=== PATIENT | male | born 1935 | race Two or more races ===

== ENCOUNTER 2022-11-27 23:30 | Inpatient (IN) | payer OTHER ==
[~2022-11-27] VITALS: Ht 175.3 cm; Wt 68.0 kg
[2022-11-28] VITALS (15 sets, daily range): BP systolic 108–177; BP diastolic 43–92
[2022-11-28 01:32] LABS: Basophils # (auto) 0 10 ^3/uL (0-0.2); Eosinophils # (auto) 0.2 10 ^3/uL (0-0.8); Eosinophils % (auto) 4.2 % (0.0-7.0); Mean Corpuscular Hgb Conc. 34.2 g/dL (32.0-36.0); Monocytes # (auto) 0.5 10 ^3/uL (0-1.3); Neutrophils # (auto) 2.5 10 ^3/uL (1.6-8.6)
[2022-11-28 01:34] LABS: Basophils % (auto) 0.8 % (0.0-2.0); Hematocrit 23.2 % (41.0-53.0); Hemoglobin 7.9 g/dL (13.5-17.5); Lymphocytes # (auto) 1.5 10 ^3/uL (0.4-5.4); Lymphocytes % (auto) 31.9 % (10.0-50.0); Mean Corpuscular Volume 90.5 fL (80.0-100.0); Monocytes % (auto) 11.1 % (0.0-12.0); Red Blood Cells 2.57 10^6/uL (4.5-5.90); Red Cell Distribution Width 17.3 % (11.8-14.3); White Blood Cell 4.8 10^3/uL (4.4-10.8)
[2022-11-28 01:40] LABS: Albumin 2.5 g/dL (3.4-5.0); BUN/Creatinine Ratio 12.3 (10.0-20.0); Calcium 7.7 mg/dL (8.5-10.1); Potassium 4.1 mmol/L (3.5-5.1)
[2022-11-28 01:43] LABS: Bilirubin, Total 0.2 mg/dL (0.2-1.0); Total Protein 5.6 g/dL (6.4-8.2)
[2022-11-28 01:48] LABS: INR 1.01 (0.9-1.15); Partial Thromboplastin Time 26.2 sec (24.6-33.4)
[2022-11-28 09:36] LABS: Urine Bacteria NONE SEEN /hpf (None Seen); Urine Blood Negative /uL (Negative); Urine Specific Gravity 1.005 (1.001-1.035); Urine WBC 2 /hpf (0 - 3)
[2022-11-28] MEDS ORDERED: MORPHINE SULFATE INJ 2 MG/ml SYRG IV PRN (11:45)
[2022-11-28] MEDS ORDERED: NITROGLYCERIN 0.4 MG SL TAB SL PRN (11:45)
[2022-11-28 12:18] LABS: Cholesterol 156 mg/dL (< 200); HDL Cholesterol 43 mg/dL (40-59); LDL Cholesterol 103 mg/dL (< 100); Triglycerides 102 mg/dL (< 150)
[2022-11-28] MEDS ORDERED: LIDOCAINE 2%HCL (LOCAL ANESTH.) INJ 10ml MDV ONE (12:22)
[2022-11-28] MEDS ORDERED: LIDOCAINE 2%HCL (LOCAL ANESTH.) INJ 20ML MDV ONE (12:23)
[2022-11-28] MEDS ORDERED: MIDAZOLAM HCL 2MG/2ML 2ml VIAL (1mg/ml) ONE (12:25)
[2022-11-28] MEDS ORDERED: HEPARIN SODIUM (PORCINE) 5000 UNITS/ML 1ML VIAL ONE (12:25)
[2022-11-28] MEDS ORDERED: fentaNYL CITRATE 100 MCG/2 ML VL ONE (12:25)
[2022-11-28] MEDS ORDERED: hydrALAZINE HCL 20 MG/ML VL IV PRN (12:30)
[2022-11-28] MEDS ORDERED: DEXTROSE (50%) 50ML SYRG IV PRN (12:30)
[2022-11-28] MEDS ORDERED: ceFAZolin 1GM/50ML 50 ML IV ONE (12:41)
[2022-11-28] MEDS ORDERED: PANTOPRAZOLE 40 MG/10 ML VIAL INJ IV ONE (12:45)
[2022-11-28 12:47] LABS: Alcohol, Urine < 3.0 mg/dL (0-10); Amphetamine Screen, Urine NEGATIVE (NEGATIVE); Barbiturate Scree,Urine NEGATIVE (NEGATIVE); Benzodiazephine Screen, Urine NEGATIVE (NEGATIVE); Cannabinoid Screen, Urine NEGATIVE (NEGATIVE); Cocaine Screen, Urine NEGATIVE (NEGATIVE); Opiate Scree,Urine NEGATIVE (NEGATIVE); Phencyclidine Screen, Urine NEGATIVE (NEGATIVE)
[2022-11-28 14:03] LABS: % Iron Saturation 25.3 % (20-55)
[2022-11-28 14:09] LABS: Ferritin 197.2 ng/mL (10-322)
[2022-11-28 17:20] LABS: Folate (Folic Acid) 14.2 ng/mL (5.38-24)
[2022-11-28 17:55] LABS: INR 1.05 (0.9-1.15)
[2022-11-28] MEDS: InsuLIN REG 1unit/0.01ml Soln (100units/ml) SC SCH ×2 (19:00→21:48)
[2022-11-28] MEDS: ACCU-CHEK COMFORT CURVE STRIP VI SCH ×2 (19:00→21:46)
[2022-11-28] MEDS: HEPARIN SODIUM (PORCINE) 5000 UNITS/ML 1ML VIAL SC SCH (21:45)
[2022-11-29 05:21] VITALS: BP 128/62
[2022-11-29] MEDS: ACCU-CHEK COMFORT CURVE STRIP VI SCH ×2 (06:24→12:00)
[2022-11-29] MEDS: InsuLIN REG 1unit/0.01ml Soln (100units/ml) SC SCH ×2 (06:25→12:53)
[2022-11-29 06:29] LABS: Basophils # (auto) 0 10 ^3/uL (0-0.2); Eosinophils # (auto) 0.2 10 ^3/uL (0-0.8); Mean Corpuscular Hemoglobin 31.3 pg (28.0-32.0); Monocytes # (auto) 0.4 10 ^3/uL (0-1.3); Neutrophils # (auto) 2.6 10 ^3/uL (1.6-8.6); Neutrophils % (auto) 60.9 % (37.0-80.0); White Blood Cell 4.3 10^3/uL (4.4-10.8)
[2022-11-29 06:32] LABS: Basophils % (auto) 1.1 % (0.0-2.0); Eosinophils % (auto) 4.5 % (0.0-7.0); Hematocrit 22.3 % (41.0-53.0); Hemoglobin 7.8 g/dL (13.5-17.5); Lymphocytes # (auto) 1.1 10 ^3/uL (0.4-5.4); Lymphocytes % (auto) 24.7 % (10.0-50.0); Mean Corpuscular Hgb Conc. 34.9 g/dL (32.0-36.0); Mean Corpuscular Volume 89.8 fL (80.0-100.0); Monocytes % (auto) 8.8 % (0.0-12.0); Nucleated Red Blood Cells % 0.1 %; Red Blood Cells 2.48 10^6/uL (4.5-5.90); Red Cell Distribution Width 17.2 % (11.8-14.3)
[2022-11-29 06:46] LABS: % Iron Saturation 23.5 % (20-55)
[2022-11-29 06:47] LABS: Potassium 4.3 mmol/L (3.5-5.1)
[2022-11-29 06:56] LABS: Albumin 2.4 g/dL (3.4-5.0); BUN/Creatinine Ratio 12.7 (10.0-20.0); Bilirubin, Total 0.3 mg/dL (0.2-1.0); Calcium 7.6 mg/dL (8.5-10.1); Total Protein 5.1 g/dL (6.4-8.2)
[2022-11-29] MEDS ORDERED: SODIUM CHL 0.9% 1000 ML BAG XX ONE (07:00)
[2022-11-29 09:00] VITALS: BP 114/50
[2022-11-29] MEDS: HEPARIN SODIUM (PORCINE) 5000 UNITS/ML 1ML VIAL SC SCH (09:36)
[2022-11-29] MEDS ORDERED: NICOTINE 7MG/24HR TOPICAL PATCH TD SCH (10:00)
[2022-11-29] MEDS ORDERED: PANTOPRAZOLE 40 MG/10 ML VIAL INJ IV SCH (10:00)
[2022-11-29 13:00] VITALS: BP 109/60
[2022-11-29 13:29] VITALS: BP 114/50
[2022-11-29] MEDS ORDERED: EPOETIN ALFA-EPBX 10,000 UNIT/1ML VIAL SC ONE (21:00)
== END 2022-11-29 14:30 | disposition home or self-care (01) | DRG 673 ==
LOC: EDBD 23:30 → ER 23:30 → TELE 11-28 11:34 → EDBD 11-28 11:34 → TELE-WESTW 11-28 18:52
PROVIDERS: ADMIT Registered Nurse; ATTEND Internal Medicine
PROC: 0JH63XZ Insertion of Tunneled Vascular Access Device into Chest Subcutaneous Tissue and Fascia, Percutaneous Approach (ICD-10-PCS; principal; 2022-11-28)
PROC: 02HV33Z Insertion of Infusion Device into Superior Vena Cava, Percutaneous Approach (ICD-10-PCS; 2022-11-28)
PROC: B5181ZA Fluoroscopy of Superior Vena Cava using Low Osmolar Contrast, Guidance (ICD-10-PCS; 2022-11-28)
PROC: B548ZZA Ultrasonography of Superior Vena Cava, Guidance (ICD-10-PCS; 2022-11-28)
DX: T82.42XA Displacement of vascular dialysis catheter, initial encounter (principal); N18.6 End stage renal disease; I12.0 Hypertensive chronic kidney disease with stage 5 chronic kidney disease or end stage renal disease; E11.22 Type 2 diabetes mellitus with diabetic chronic kidney disease; D63.1 Anemia in chronic kidney disease; E78.5 Hyperlipidemia, unspecified; E83.51 Hypocalcemia; Z20.822 Contact with and (suspected) exposure to COVID-19; E88.09 Other disorders of plasma-protein metabolism, not elsewhere classified; F17.210 Nicotine dependence, cigarettes, uncomplicated; Y71.2 Prosthetic and other implants, materials and accessory cardiovascular devices associated with adverse incidents; Z95.0 Presence of cardiac pacemaker; Z99.2 Dependence on renal dialysis
CPT/HCPCS: 36415; 36558; 71045; 77001; 80053; 80061; 80307; 81001; 82553; 82607; 82728; 82746; 82962; 83036; 83540; 83550; 83615; 83690; 83880; 84443; 84484; 85025; 85045; 85049; 85384; 85610; 85730; 86850; 86900; 86901; 87040; 87426; 93005; 93306; C9113; G0378; J0690; J1815; J2001; J2250